=== PATIENT | male | born 1980 | race Hispanic/Latino ===

== ENCOUNTER 2018-12-25 10:04 | Emergency (ER) | payer BC ==
[~2018-12-25] VITALS: Ht 185.4 cm; Wt 101.2 kg
[2018-12-25 10:23] VITALS: BP 139/76
--- NOTE | 2018-12-25 11:21 | ER.PDOC ---
General Chief Complaint: Lower Back Pain or Injury Stated Complaint: LOWER BACK PAIN TRAVEL OUT OF US: No Time seen by MD: 11:21 Source: patient Exam Limitations: no limitations History of Present Illness Initial Comments 38 Y/O MALE WITH HX TO ED WITH LIFTING FURNITURE YESTERDAY AND PULLED A MUSCLE IN RIGHT SIDE BACK.. NO TRAUMA, NO OTHER COMPLAINTS. NO LOSS OF BLADDER OR BOWEL CONTROL. Timing/Duration: 24 hours Severity: moderate Modifying Factors: improves with cold therapy, improves with rest Associated Symptoms: denies symptoms Past Medical History Medical History: no pertinent history Surgical History: no surgical history Family History Significant Family History: no pertinent family hx Social History Smoking: less than 1 pack/day Alcohol Use: occassionally Drug Use: none Reviewed Nursing Reviewed: Vital Signs, Abn. Noted, Nursing Assessment Review of Systems Constitutional: no symptoms reported EENTM: no symptoms reported Respiratory: no symptoms reported Cardiovascular: no symptoms reported Gastrointestinal: no symptoms reported Genitourinary: no symptoms reported Musculoskeletal: see HPI, back pain Skin: no symptoms reported Psychiatric/Neurological: no symptoms reported Hematologic/Lymphatic: no symptoms reported Immunological/Allergic: no symptoms reported Physical Exam General Appearance: WD/WN, Mild Distress Neck: Non-Tender, Full Range of Motion, Supple, Normal Inspection Gastrointestinal: Normal Bowel Sounds, No Organomegaly, No Pulsatile Mass, Non Tender Back: Decreased Range Of Motion, Muscle Spasm Extremities: Normal Range of Motion, Non-Tender, Normal Inspection, No Pedal Edema, No Calf Tenderness 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 Course Vitals & review Data Vital Sign - Last 24 Hours 12/25/18 12/25/18 12/25/18 10:23 10:23 10:32 Temp 97.8 97.8 97.8 97.8 97.8 97.8 Pulse 61 61 61 Resp 18 18 18 B/P (MAP) 139/76 (97) Pulse Ox 99 99 O2 Delivery Room Air Room Air Sepsis Infection Criteria Pres: None O2 Sat by Pulse Oximetry: 99 Departure Time of Disposition: 11:41 Disposition: 01 HOME, SELF-CARE Impression: Primary Impression: Low back pain Additional Impression: Lumbar sprain Condition: Stable Patient Instructions: Back Pain in Referrals: PCP,UNKNOWN (PCP) PRIMARY CARE PROVIDER Additional Instructions: TP ED IF NO BETTER OR WORSE. FOLLOW UP WITH YOUR DR WHEN HOME, NO WORK X 2 DAYS THEN LIGHT DUTY UNTIL BACK IS BETTER, ICE X 5-7 DAYS, RX FLEXERIL, PREDNISONE, OTC MOTRIN. Duration or Time Spent with Pa: 15 MIN Problem Qualifiers MIRI NOGUERA DO Dec 25, 2018 11:21
[2018-12-25] MEDS ORDERED: PREDNISONE PO STA (11:33)
[2018-12-25] MEDS ORDERED: PREDNISONE ONE ×2 (11:35)
--- NOTE | 2018-12-25 12:00 | NUR ---
DISMISSAL PT DISCHARGED IN STABLE CONDITION.
[2018-12-25 12:13] VITALS: BP 139/76
== END 2018-12-25 12:00 | disposition home or self-care (01) ==
LOC: ER 10:04
DX: S33.5XXA Sprain of ligaments of lumbar spine, initial encounter (principal); F17.200 Nicotine dependence, unspecified, uncomplicated; X50.0XXA Overexertion from strenuous movement or load, initial encounter; Y93.89 Activity, other specified; Y92.89 Other specified places as the place of occurrence of the external cause; Y99.8 Other external cause status
CPT/HCPCS: 99283; J7512 ×2